=== PATIENT | female | born 1965 ===

== ENCOUNTER 2017-04-18 23:33 | Emergency (ER) | payer MEDICAID ==
[2017-04-18 23:47] VITALS: RESP 16; O2SAT 100; BMI 32.1
[2017-04-19] MEDS ORDERED: Sodium Chloride 0.9% 1,000 ML IV STA (00:15)
[2017-04-19] MEDS ORDERED: Alum-Mag Hydrox-Simethicone Susp (30 mL) PO STA (00:15)
--- NOTE | 2017-04-19 00:26 | ED PDOC ---
Arrival/HPI - General Chief Complaint: GI Problem Time Seen by Provider: 04/18/17 23:47 Historian: Patient - History of Present Illness Narrative History of Present Illness (Text): 04/19/17 00:09 Ju Daniel is a 51 year old female who presents to the emergency department complaining of persistent left sided abdominal pain for about 6 hours. Patient notes that she experiences associated burning sensation, nausea , chills, headache and diarrhea. Patient states that today was the first time she vomited due to her symptoms which continue to persist, prompting patient to come to emergency department. Patient states that these symptoms have been intermittent for one year and possibly occur after eating certain fried foods. Patient saw her channel marketing manager about her symptoms, underwent endoscopy and a colonoscopy, and was subsequently treated for H. pylori. Patient was prescribed Omeprazole and Nexium. Patient denies any other complaint at this time. Time/Duration: 4-6 hours Symptom Onset: Gradual Symptom Course: Unchanged Severity Level: Moderate Activities at Onset: Rest Context: Home Past Medical History - Provider Review Nursing Documentation Reviewed: Yes - Tetanus Immunization Tetanus Immunization: Unknown - Past Medical History Past Medical History: No Previous - Endocrine/Metabolic Hx Systemic Lupus Erythematosus: Yes - Musculoskeletal/Rheumatological Hx Arthritis: Yes (Rheumatoid) - Psychiatric Hx Depression: Yes Hx Emotional Abuse: No Hx Physical Abuse: No Hx Substance Use: No - Surgical History Hx Orthopedic Surgery: Yes (left heel spur) Hx Tubal Ligation: Yes - Anesthesia Hx Anesthesia: Yes Hx Anesthesia Reactions: No Hx Malignant Hyperthermia: No - Suicidal Assessment Feels Threatened In Home Enviroment: No Family/Social History - Physician Review Nursing Documentation Reviewed: Yes Family/Social History: No Known Family HX Smoking Status: Former Smoker Hx Alcohol Use: Yes Hx Substance Use: No Hx Substance Use Treatment: No Allergies/Home Meds Allergies/Adverse Reactions: Allergies morphine Allergy (Verified 03/26/16 14:56) REDNESS Home Medications: Home Meds Medication Instructions Recorded Confirmed Dicyclomine [Dicyclomine HCl] 10 mg PO BID PRN 04/19/17 04/19/17 Gabapentin [Neurontin] 300 mg PO DAILY 04/19/17 04/19/17 Hydroxychloroquine Sulfate 200 mg PO DAILY 04/19/17 04/19/17 Naproxen [Naprosyn] 500 mg PO PRN PRN 04/19/17 04/19/17 Omeprazole 40 mg PO DAILY 04/19/17 04/19/17 Pnv with Ca,No.72/Iron/FA [Preplus 1 each PO DAILY 04/19/17 04/19/17 Ca-Fe 27 mg-FA 1 mg Tb] Polyethylene Glycol 3350 [Miralax] 17 gm PO PRN PRN 04/19/17 04/19/17 Review of Systems - Physician Review All systems were reviewed & negative as marked: Yes - Review of Systems Constitutional: Other (chills). absent: Fevers Eyes: absent: Vision Changes ENT: absent: Hearing Changes Respiratory: absent: SOB, Cough Cardiovascular: absent: Chest Pain Gastrointestinal: Abdominal Pain, Diarrhea, Nausea, Vomiting Genitourinary Female: absent: Dysuria Musculoskeletal: absent: Arthralgias, Back Pain Skin: absent: Rash, Pruritis Neurological: Headache Endocrine: absent: Diaphoresis Hemo/Lymphatic: absent: Adenopathy Psychiatric: absent: Anxiety Physical Exam - Physical Exam Narrative Physical Exam (Text): Constitutional: No acute distress. Head: Normocephalic. Atraumatic. Eyes: PERRL. ENT: Moist mucous membranes. Neck: Supple. Cardiovascular: Regular rate. Chest: No tenderness. Respiratory: Clear to auscultation bilaterally. GI: Epigastric and LUQ tenderness with guarding. No rebound. Back: No CVA tenderness. Musculoskeletal: No tenderness or swelling of extremities. Skin: No rash. Neurologic: Alert, no focal deficit.\ Vital Signs Reviewed: Yes Vital Signs Temp Pulse Resp BP Pulse Ox 04/19/17 02:19 98.7 F 93 H 16 155/77 H 100 04/18/17 23:46 99.5 F 96 H 16 132/75 100 Temperature: Afebrile Blood Pressure: Normal Pulse: Tachycardic Respiratory Rate: Normal Appearance: Positive for: Well-Appearing, Non-Toxic, Comfortable Pain Distress: None Mental Status: Positive for: Alert and Oriented X 3 Medical Decision Making ED Course and Treatment: 04/19/17 00:09 Impression: 51 year female complaining of persistent left sided abdominal pain with associated vomiting, nausea, chills, headache, and diarrhea for 6 hours. Differential Diagnosis included but are not limited to: Gastritis vs. Enteritis vs. Pancreatitis Plan: -- Abdomen and Pelvis CT with contrast -- HCG and Urinalysis -- Labs -- Maalox, Pepcid, Zofran, and IV fluids -- Reassess and disposition Prior Visits: Notes and results from previous visits were reviewed. Patient last seen in the ED on 03/26/16 for right elbow pain for one week. Patient was discharged home. Progress Notes: IMPRESSION: 1. Probable colitis. Consider inflammatory, infectious or ischemic etiologies. 2. Probable fibroid uterus. 3. LEFT ovarian dermoid. 4. Incidental/non-acute findings are described above. Patient in no distress. Labs unremarkable. Discharge home, f/u PMD/GI, return to ER for worsening pain, fever, vomiting, dyspnea, or any other problem. - Lab Interpretations Lab Results: 04/19/17 00:00 04/19/17 00:00 Lab Results 04/19/17 00:00: Sodium 142, Potassium 4.1, Chloride 104, Carbon Dioxide 26, Anion Gap 16, BUN 14, Creatinine 0.6, Est GFR ( Amer) > 60, Est GFR (Non- Af Amer) > 60, Random Glucose 118 H, Calcium 9.5, Total Bilirubin 0.4, AST 30, ALT 31, Alkaline Phosphatase 66, Total Protein 8.2, Albumin 4.4, Globulin 3.7, Albumin/Globulin Ratio 1.2, Lipase 97 04/19/17 00:00: Urine Color Yellow, Urine Appearance Sl cloudy, Urine pH 6.0, Ur Specific Gem >= 1.030, Urine Protein Negative, Urine Glucose (UA) Negative, Urine Ketones Negative, Urine Blood Large H, Urine Nitrate Negative, Urine Bilirubin Negative, Urine Urobilinogen 0.2, Ur Leukocyte Esterase Negative , Urine RBC 25 - 30, Urine WBC 0 - 2, Ur Epithelial Cells 0 - 2, Urine HCG, Qual Negative 04/19/17 00:00: WBC 11.6 H D, RBC 5.02, Hgb 14.0, Hct 41.1, MCV 81.9, MCH 27.9, MCHC 34.1, RDW 14.6 H, Plt Count 274, MPV 11.0, Gran % 89.1 H, Lymph % (Auto) 5.2 L, [place] % (Auto) 4.5, Eos % (Auto) 1.0 L, Baso % (Auto) 0.2, Gran # 10.36 H , Lymph # 0.6 L, [place] # 0.5, Eos # 0.1, Baso # 0.02 I have reviewed the lab results: Yes - RAD Interpretation Radiology Orders: 04/19/17 00:16 ABD & PELVIS IV CONTRAST ONLY [CT] Stat - Medication Orders Current Medication Orders: Discontinued Medications Al Hydrox/Mg Hydrox/Simethicone (Maalox Plus 30 Ml) 30 ml PO STAT STA Stop: 04/19/17 00:16 Last Admin: 04/19/17 00:31 Dose: 30 ml Famotidine (Pepcid) 20 mg IVP STAT STA Stop: 04/19/17 00:16 Last Admin: 04/19/17 00:32 Dose: 20 mg Sodium Chloride (Sodium Chloride 0.9%) 1,000 mls @ 999 mls/hr IV .Q1H1M STA Stop: 04/19/17 01:15 Last Admin: 04/19/17 00:32 Dose: 999 mls/hr Iohexol (Omnipaque 350 100 Ml) Confirm Administered Dose 350 mg .ROUTE .STK-MED ONE Stop: 04/19/17 01:45 Ondansetron HCl (Zofran Inj) 8 mg IVP STAT STA Stop: 04/19/17 00:16 Last Admin: 04/19/17 00:32 Dose: 8 mg - Scribe Statement The provider has reviewed the documentation as recorded by the Bharath Porras Provider Scribe Attestation: All medical record entries made by the Scribe were at my direction and personally dictated by me. I have reviewed the chart and agree that the record accurately reflects my personal performance of the history, physical exam, medical decision making, and the department course for this patient. I have also personally directed, reviewed, and agree with the discharge instructions and disposition. Disposition/Present on Arrival - Present on Arrival Any Indicators Present on Arrival: No History of DVT/PE: No History of Uncontrolled Diabetes: No Urinary Catheter: No History of Decub. Ulcer: No History Surgical Site Infection Following: None - Disposition Have Diagnosis and Disposition been Completed?: Yes Diagnosis: Colitis Disposition: HOME/ ROUTINE Disposition Time: 02:35 Patient Plan: Discharge Condition: STABLE Discharge Instructions (ExitCare): Colitis (ED) Prescriptions: Ciprofloxacin [Cipro] 500 mg PO BID #14 tab Metronidazole [Flagyl] 500 mg PO Q8 #30 tab Ondansetron ODT [Zofran ODT] 4 mg PO Q8 #12 odt Referrals: Anne Cedeno DO [Primary Care Provider] - Follow up with primary
[2017-04-19 01:02] LABS: BASO # 0.02 K/mm3 (0.0-2.0); BASO % 0.2 % (0.0-3.0); EOS # 0.1 (0.0-0.7); GRAN # 10.36 (1.4-6.5); GRAN % 89.1 % (50.0-68.0); LYMPH # 0.6 (1.2-3.4); LYMPH % 5.2 % (22.0-35.0); MEAN CELL VOLUME 81.9 fL (80.0-105.0); MEAN CORPUSCULAR HEMOGLOBIN 27.9 pg (25.0-35.0); MEAN CORPUSCULAR HGB CONC 34.1 g/dl (31.0-37.0); MONO # 0.5 (0.1-0.6); MONO % 4.5 % (1.0-6.0); PLATELET COUNT 274 10^3/uL (120.0-450.0); RBC 5.02 10^6/uL (3.5-6.1); RED CELL DISTRIBUTION WIDTH 14.6 % (11.5-14.5); WHITE BLOOD COUNT 11.6 10^3/ul (4.5-11.0)
[2017-04-19 01:04] LABS: ALB/GLOB RATIO 1.2 (1.1-1.8); ALBUMIN 4.4 g/dL (3.0-4.8); ALT/SGPT 31 U/L (7-56); AST/SGOT 30 U/L (15-39); BLOOD UREA NITROGEN 14 mg/dL (7-21); CALCIUM 9.5 mg/dL (8.4-10.5); GFR AFRICAN-AMERICAN > 60; GFR NON-AFRICAN AMERICAN > 60; LIPASE 97 U/L (23-300)
[2017-04-19 01:06] LABS: URINE BILIRUBIN NEGATIVE (NEGATIVE); URINE BLOOD LARGE (NEGATIVE); URINE GLUCOSE (UA) NEGATIVE (NEGATIVE); URINE LEUKOCYTE ESTERASE NEGATIVE Leu/uL (NEGATIVE); URINE NITRATE NEGATIVE (NEGATIVE); URINE PROTEIN NEGATIVE mg/dL (<30 mg/dL); URINE UROBILINOGEN 0.2 E.U./dL (<1 E.U./dL)
[2017-04-19 01:09] LABS: URINE APPEARANCE SL CLOUDY (CLEAR); URINE COLOR YELLOW (YELLOW)
[2017-04-19 01:10] LABS: HCG,QUALITATIVE URINE NEGATIVE (NEGATIVE)
[2017-04-19 01:18] LABS: URINE EPITHELIAL CELLS 0 - 2 /hpf (0-5); URINE RBC 25 - 30 /hpf (0-2); URINE WBC 0 - 2 /hpf (0-6)
[2017-04-19] MEDS ORDERED: Iohexol 350 MG/100 ML VIAL ONE (01:44)
[2017-04-19 02:20] VITALS: BP 155/77; PULSE 93; TEMP 98.7
--- NOTE | 2017-04-19 02:33 | CT ---
EXAM: CT Abdomen and Pelvis With Intravenous Contrast CLINICAL HISTORY: 51 years old, female; Pain; Abdominal pain; Generalized; Additional info: Abd pain, vomiting TECHNIQUE: Axial computed tomography images of the abdomen and pelvis with intravenous contrast. This CT exam was performed using one or more of the following dose reduction techniques: automated exposure control, adjustment of the mA and/or kV according to patient size, and/or use of iterative reconstruction technique. Coronal and sagittal reformatted images were created and reviewed. CONTRAST: 96 mL of OMNI 350 administered intravenously. COMPARISON: No relevant prior studies available. FINDINGS: Lower thorax: Minimal atelectasis. LEFT lower lobe calcified granuloma. ABDOMEN: Liver: Unremarkable. No mass. Gallbladder and bile ducts: No calcified stones. No ductal dilation. Pancreas: No ductal dilation. No mass. Spleen: No splenomegaly. Adrenals: No mass. Kidneys and ureters: No mass. No hydronephrosis. Stomach and bowel: Few scattered diverticula within colon. No associated inflammatory stranding. Mild to moderate mural thickening of descending, sigmoid colon. No obstruction. Appendix: Normal caliber. No inflammation. PELVIS: Bladder: Unremarkable. Reproductive: Lobulated heterogeneous uterus. 2.9 x 2.6 x 2.7 cm fat containing lesion within LEFT ovary. ABDOMEN and PELVIS: Intraperitoneal space: No significant fluid collection. No free air. Bones/joints: Mild degenerative changes of spine. No acute fracture. Soft tissues: Unremarkable. Vasculature: Minimal atherosclerotic disease. No aneurysm. Lymph nodes: No pathologically enlarged lymph nodes. IMPRESSION: 1. Probable colitis. Consider inflammatory, infectious or ischemic etiologies. 2. Probable fibroid uterus. 3. LEFT ovarian dermoid. 4. Incidental/non-acute findings are described above.
== END 2017-04-19 02:44 | disposition home or self-care (01) ==
LOC: ED 23:33
DX: K52.9 Noninfective gastroenteritis and colitis, unspecified (principal); M32.9 Systemic lupus erythematosus, unspecified; Z87.891 Personal history of nicotine dependence
CPT/HCPCS: 74177; 80053; 81001; 83690; 84703; 85025; 96361; 96374; 96375; 99285; J2405; J7040; Q9967

== ENCOUNTER 2017-04-19 18:19 | Emergency (ER) | payer MEDICAID ==
[2017-04-19 18:19] VITALS: BMI 32.1
[2017-04-19 18:34] VITALS: TEMP 98.5; O2SAT 100
--- NOTE | 2017-04-19 18:54 | ED PDOC ---
Arrival/HPI - General Chief Complaint: GI Problem Time Seen by Provider: 04/19/17 18:51 Historian: Patient - History of Present Illness Narrative History of Present Illness (Text): The patient is a 51yo female, presents to the emergency department for evaluation of bright red blood per rectum since this morning with three episodes. Pt reports her abdominal pain is present but has improved compared to yesterday. She denies any nausea, vomiting and diarrhea. Also denies any chest pain, shortness of breath, dyspnea upon exertion, weakness or lightheadedness. Pt offers no additional medical complaints. Time/Duration: 24 hours Past Medical History - Provider Review Nursing Documentation Reviewed: Yes - Tetanus Immunization Tetanus Immunization: Unknown - Past Medical History Past Medical History: No Previous - Endocrine/Metabolic Hx Systemic Lupus Erythematosus: Yes - Musculoskeletal/Rheumatological Hx Arthritis: Yes (Rheumatoid) - Psychiatric Hx Depression: Yes Hx Emotional Abuse: No Hx Physical Abuse: No Hx Substance Use: No - Surgical History Hx Orthopedic Surgery: Yes (left heel spur) Hx Tubal Ligation: Yes - Anesthesia Hx Anesthesia: Yes Hx Anesthesia Reactions: No Hx Malignant Hyperthermia: No - Suicidal Assessment Feels Threatened In Home Enviroment: No Family/Social History - Physician Review Nursing Documentation Reviewed: Yes Family/Social History: Unknown Family HX Smoking Status: Former Smoker Hx Alcohol Use: Yes Hx Substance Use: No Hx Substance Use Treatment: No Allergies/Home Meds Allergies/Adverse Reactions: Allergies morphine Allergy (Verified 04/19/17 18:30) REDNESS Home Medications: Home Meds Medication Instructions Recorded Confirmed Dicyclomine [Dicyclomine HCl] 10 mg PO BID PRN 04/19/17 04/19/17 Gabapentin [Neurontin] 300 mg PO DAILY 04/19/17 04/19/17 Hydroxychloroquine Sulfate 200 mg PO DAILY 04/19/17 04/19/17 Naproxen [Naprosyn] 500 mg PO PRN PRN 04/19/17 04/19/17 Omeprazole 40 mg PO DAILY 04/19/17 04/19/17 Pnv with Ca,No.72/Iron/FA [Preplus 1 each PO DAILY 04/19/17 04/19/17 Ca-Fe 27 mg-FA 1 mg Tb] Polyethylene Glycol 3350 [Miralax] 17 gm PO PRN PRN 04/19/17 04/19/17 Review of Systems - Physician Review All systems were reviewed & negative as marked: Yes Physical Exam - Physical Exam Narrative Physical Exam (Text): - Review of Systems Constitutional: Normal. absent: Fatigue, Weight Change, Fevers Eyes: Normal ENT: Normal Respiratory: Normal absent: SOB, Cough, Sputum Cardiovascular: Normal absent: Chest pain, Palpitations, Syncope Gastrointestinal: Abdominal pain (improved compared to yesterday), Bright red blood per rectum, Normal absent:Diarrhea, Nausea, Vomiting Genitourinary: Normal. absent: Dysuria, Frequency, Hematuria Musculoskeletal: Normal. absent: Arthralgias, Back Pain, Neck Pain Skin: Normal Neurological: Normal absent: Focal Weakness Endocrine: Normal Hemo/Lymphatic: Normal Psychiatric: Normal - Physical exam Patient appears age appropriate, speaking full sentences without difficulty - Systems Exam Head: Present: Atraumatic, Normocephalic Pupils: Present: PERRL Extraocular Muscles: Present: EOMI Conjunctiva: Present: Normal Mouth: Present: Moist Mucous Membranes Neck: Present: Normal Range of Motion. No: MIDLINE TENDERNESS, Paraspinal Tenderness Respiratory/Chest: Present: Clear to Auscultation, Good Air Exchange. No: Respiratory Distress, Accessory Muscle Use, Tachypnic Cardiovascular: Present: Regular Rate and Rhythm, Normal S1, S2, Peripheral Pulses Present. No: Murmurs Abdomen: Present: Normal Bowel Sounds, Mild tenderness to palpation of left lower quadrant No: , Peritoneal Signs, Rebound, Guarding, Distention Rectal exam: Good rectal tone, external hemorrhoids noted, scant bright red blood noted, guaiac positive Back: Present: Normal Inspection. No: Midline Tenderness, Paraspinal Tenderness Upper Extremity: Present: Normal Inspection. No: Cyanosis, Edema Lower Extremity: Present: Normal Inspection. No: Edema Neurological: Present: GCS=15, Speech Normal, cranial nerves II through XII fully intact with no cerebellar abnormality, neuro-sensory fully intact. No focal neurological deficits. Skin: Present: Warm, Dry, Normal Color. No: Rashes Lymphatic: Present: OX3, NI, NC Psychiatric: Present: Alert, Oriented x 3, Normal Insight, Normal Concentration Reina Vincent (Scribe) present at bedside during rectal exam. Vital Signs Reviewed: Yes Vital Signs Temp Pulse Resp BP Pulse Ox 04/19/17 21:00 82 16 128/80 100 04/19/17 18:33 98.5 F 84 18 125/77 100 Temperature: Afebrile Blood Pressure: Normal Pulse: Regular Respiratory Rate: Normal Appearance: Positive for: Well-Appearing, Non-Toxic, Comfortable Pain Distress: None Mental Status: Positive for: Alert and Oriented X 3 Medical Decision Making ED Course and Treatment: Impression: Rectal bleeding, recent diagnosis of colitis. Scant bright red blood on rectal exam. Pt hemodynamically stable. Differential Diagnosis included but are not limited to: Colitis vs. anemia Plan: -- Call placed to pt's GI Dr. Jakob Martin -- Labs -- Reassess and disposition Prior Visits: Notes and results from previous visits were reviewed. On 04/18/2017 patient was seen in emergency department and evaluated for left sided abdominal pain. CT scan showed probable colitis. Patient was discharged home with prescriptions for Cippro and Flagyl. Progress Notes: 04/19/17 19:40 Case discussed extensively with on-call Dr. Miller in detail. Recommends patient continue the antibiotics and to call office for follow up on Saturday. Advises that patient can be discharged home if vitals are stable and hemoglobin has not significantly dropped. 04/19/17 20:42 Hb stable BUN/Cre ratio normal pt hemodynamically stable in no distress states she feels comfortable being dc'd home with outpatient f/u no active bleeding at this time advised to take abx as prescribed and to f/u this upcoming Saturday On reevaluation, patient reports that she feels much better and would like to be discharged home. Patient's repeat abdominal exam is soft, nontender, non distended with positive bowel sounds in all 4 quadrants and no peritoneal signs. Patient is tolerating PO without any difficulty. Pt states she understands to return to the ER right away for new or worsening symptoms or for inability to f/u with PMD or specialist as instructed. Patient states that she fully agrees with and understands discharge instructions. States that she agrees with the plan and disposition. Verbalized and repeated discharge instructions and plan. I have given the patient opportunity to ask any additional questions. - Lab Interpretations Lab Results: 04/19/17 19:55 04/19/17 19:55 Lab Results 04/19/17 19:55: Sodium 139, Potassium 4.2, Chloride 101, Carbon Dioxide 29, Anion Gap 13, BUN 10, Creatinine 0.5, Est GFR ( Amer) > 60, Est GFR (Non- Af Amer) > 60, Random Glucose 101, Calcium 9.3, Total Bilirubin 0.5, AST 51 H, ALT 61 H, Alkaline Phosphatase 72, Total Protein 7.8, Albumin 4.1, Globulin 3.7 , Albumin/Globulin Ratio 1.1 04/19/17 19:55: WBC 10.0, RBC 4.60, Hgb 12.7, Hct 37.5, MCV 81.5, MCH 27.6, MCHC 33.9, RDW 14.4, Plt Count 258, MPV 9.9, Gran % 72.7 H, Lymph % (Auto) 16.1 L, [place] % (Auto) 8.2 H, Eos % (Auto) 2.8, Baso % (Auto) 0.2, Gran # 7.24 H, Lymph # 1.6, [place] # 0.8 H, Eos # 0.3, Baso # 0.02 - Scribe Statement The provider has reviewed the documentation as recorded by the Bharath Kaur Provider Scribe Attestation: All medical record entries made by the Julianibkaren were at my direction and personally dictated by me. I have reviewed the chart and agree that the record accurately reflects my personal performance of the history, physical exam, medical decision making, and the department course for this patient. I have also personally directed, reviewed, and agree with the discharge instructions and disposition. Disposition/Present on Arrival - Present on Arrival Any Indicators Present on Arrival: No History of DVT/PE: No History of Uncontrolled Diabetes: No Urinary Catheter: No History of Decub. Ulcer: No History Surgical Site Infection Following: None - Disposition Have Diagnosis and Disposition been Completed?: Yes Diagnosis: Colitis Disposition: HOME/ ROUTINE Disposition Time: 20:45 Patient Plan: Discharge Condition: GOOD Discharge Instructions (ExitCare): Rectal Bleeding (ED), Colitis (ED) Additional Instructions: PLEASE RETURN TO THE EMERGENCY DEPARTMENT FOR NEW OR WORSENING SYMPTOMS. PLEASE RETURN TO THE ER FOR RECTAL BLEED, ABDOMINAL PAIN, FEVERS, CHILLS, NAUSEA, OR VOMITING. MAKE AN APPOINTMENT WITH YOUR PRIMARY PHYSICIAN AND GI SPECIALIST FOR THIS UPCOMING SATURDAY. RETURN RIGHT AWAY IF YOU CANNOT FOLLOW UP INSTRUCTED. Referrals: Anne Cedeno DO [Primary Care Provider] - Follow up with primary Jakob Martin MD [Medical Doctor] - Follow up with primary
[2017-04-19 20:02] LABS: BASO # 0.02 K/mm3 (0.0-2.0); BASO % 0.2 % (0.0-3.0); EOS # 0.3 (0.0-0.7); EOS % 2.8 % (1.5-5.0); GRAN # 7.24 (1.4-6.5); GRAN % 72.7 % (50.0-68.0); HEMOGLOBIN 12.7 gm/dL (12.0-16.0); LYMPH # 1.6 (1.2-3.4); LYMPH % 16.1 % (22.0-35.0); MEAN CELL VOLUME 81.5 fL (80.0-105.0); MEAN CORPUSCULAR HEMOGLOBIN 27.6 pg (25.0-35.0); MEAN CORPUSCULAR HGB CONC 33.9 g/dl (31.0-37.0); MEAN PLATELET VOLUME 9.9 fl (7.0-11.0); MONO # 0.8 (0.1-0.6); MONO % 8.2 % (1.0-6.0); PLATELET COUNT 258 10^3/uL (120.0-450.0); RED CELL DISTRIBUTION WIDTH 14.4 % (11.5-14.5)
[2017-04-19 20:14] LABS: ALB/GLOB RATIO 1.1 (1.1-1.8); ALBUMIN 4.1 g/dL (3.0-4.8); ALT/SGPT 61 U/L (7-56); AST/SGOT 51 U/L (15-39); BLOOD UREA NITROGEN 10 mg/dL (7-21); CALCIUM 9.3 mg/dL (8.4-10.5); GFR AFRICAN-AMERICAN > 60; GFR NON-AFRICAN AMERICAN > 60
[2017-04-19 21:36] VITALS: BP 128/80; PULSE 82; RESP 16
== END 2017-04-19 21:00 | disposition home or self-care (01) ==
LOC: ED 18:19
DX: K52.9 Noninfective gastroenteritis and colitis, unspecified (principal); Z87.891 Personal history of nicotine dependence; M32.9 Systemic lupus erythematosus, unspecified

== ENCOUNTER 2017-07-26 16:25 | Observation (INO) | payer MEDICAID ==
[2017-07-26 16:25] VITALS: BMI 32.1
--- NOTE | 2017-07-26 17:57 | ED PDOC ---
Arrival/HPI - General Chief Complaint: Dizziness/Lightheaded Time Seen by Provider: 07/26/17 17:26 Historian: Patient - History of Present Illness Narrative History of Present Illness (Text): 07/26/17 17:35 A 52 year old female, whose past medical history includes Lupus, presents to the emergency department complaining of dizziness, on and off for the past few months, worsening this past week. Patient reports dizziness is worse with movement. Also notes chest discomfort, worse with exertion over the past several months. States that her chest discomfort is noticeable more with exertion over the past week. Reports intermittent generalized headaches, denies fever or trauma. Denies cough or sore throat. Denies palpitations. Denies leg pain or swelling. Denies dark or bloody stools. PMD: Dr. Cedeno Symptom Onset: Sudden Symptom Course: Unchanged Activities at Onset: Rest Context: Home Past Medical History - Provider Review Nursing Documentation Reviewed: Yes - Infectious Disease Hx of Infectious Diseases: None - Tetanus Immunization Tetanus Immunization: Unknown - Reproductive Menopause: No - Past Medical History Past Medical History: No Previous - Endocrine/Metabolic Hx Systemic Lupus Erythematosus: Yes - Musculoskeletal/Rheumatological Hx Arthritis: Yes (Rheumatoid) - Psychiatric Hx Depression: Yes Hx Emotional Abuse: No Hx Physical Abuse: No Hx Substance Use: No - Surgical History Hx Orthopedic Surgery: Yes (left heel spur) Hx Tubal Ligation: Yes - Anesthesia Hx Anesthesia: Yes Hx Anesthesia Reactions: No Hx Malignant Hyperthermia: No - Suicidal Assessment Feels Threatened In Home Enviroment: No Family/Social History - Physician Review Nursing Documentation Reviewed: Yes Family/Social History: No Known Family HX Smoking Status: Former Smoker Hx Alcohol Use: Yes Hx Substance Use: No Hx Substance Use Treatment: No Allergies/Home Meds Allergies/Adverse Reactions: Allergies morphine Allergy (Verified 07/26/17 16:50) REDNESS Home Medications: Home Meds Medication Instructions Recorded Confirmed Gabapentin [Neurontin] 300 mg PO DAILY 04/19/17 07/26/17 Naproxen [Naprosyn] 500 mg PO PRN PRN 04/19/17 07/26/17 Omeprazole 40 mg PO DAILY 04/19/17 07/26/17 Review of Systems - Review of Systems Constitutional: Fatigue. absent: Fevers Eyes: absent: Vision Changes, Eye Pain ENT: absent: Hearing Changes Respiratory: SOB. absent: Cough Cardiovascular: Chest Pain (discomfort), HOSKINS. absent: Edema, Calf Pain Gastrointestinal: Nausea. absent: Vomiting Musculoskeletal: Arthralgias, Myalgias. absent: Joint Swelling Skin: absent: Pruritis Neurological: Headache, Dizziness Endocrine: absent: Polyuria Hemo/Lymphatic: absent: Easy Bleeding Physical Exam - Physical Exam Narrative Physical Exam (Text): 07/26/17 17:35 Head: Atraumatic. Normocephalic. Nontender. No soft tissue swelling Eyes: PERRL. EOMI. Conjunctivae are not pale. ENT: Mucous membranes are moist and intact. Oropharynx is clear and symmetric. Neck: Supple. Full ROM. No JVD. No lymphadenopathy. Cardiovascular: Regular rate. Regular rhythm. No murmurs, rubs, or gallops. Distal pulses are 2+ and symmetric. Pulmonary/Chest: No evidence of respiratory distress. Clear to auscultation bilaterally. No wheezing, rales or rhonchi. Abdominal: Soft and non-distended. There is no tenderness. No rebound, guarding, or rigidity. No organomegaly. Good bowel sounds. Back: No CVA tenderness. Extremities: No edema. No cyanosis. No clubbing. Full range of motion in all extremities. No calf tenderness. Skin: Skin is warm and dry. No petechiae. No purpura. Neurological: Alert, awake, and oriented. No facial droop. No slurred speech. No focal weakness to arms or legs. Normal rapid alternating movements. Will have mild spinning sensation when turning her head which fatigues. Neck is supple with no meningeal signs. Ambulatory. Psychiatric: Good eye contact. Normal interaction, affect, and behavior. 07/26/17 20:19 Vital Signs Reviewed: Yes Vital Signs Temp Pulse Resp BP Pulse Ox 07/26/17 16:46 98.3 F 84 16 116/76 96 Temperature: Afebrile Blood Pressure: Normal Pulse: Regular Respiratory Rate: Normal Appearance: Positive for: Well-Appearing, Non-Toxic, Comfortable Pain Distress: None Mental Status: Positive for: Alert and Oriented X 3 Medical Decision Making ED Course and Treatment: 07/26/17 17:35 Impression: A 52 year old female with dizziness, chest discomfort and headache. Differential Diagnosis included but are not limited to: vertigo vs. CAD vs. Rheumatologic disorder Plan: -- EKG -- chest xray -- CT head -- labs -- Urinalysis -- Antivert -- Reassess and disposition Prior Visits: Notes and results from previous visits were reviewed. Patient was last seen in the emergency department on 04/19/17 for evaluation of rectal bleeding and abdominal pain. Progress Notes: Patient's history supplemented by her daughter who is nurse at [facility]. Initial EKG unremarkable. Patient with some improvement of dizziness after meclizine. She is not orthostatic. 07/26/17 18:07 CT HEAD WITHOUT CONTRAST Creator : Wilton Mireles FINDINGS: HEMORRHAGE: No acute parenchymal, subarachnoid or extra-axial hemorrhage. BRAIN: No evidence of large acute infarct. Questionable minimal chronic periventricular white matter ischemic changes. . Ventricular and sulcal size are within range of normal for this patient's stated age. VENTRICLES: No obstructive hydrocephalus. CALVARIUM: Calvarium is intact. PARANASAL SINUSES: Visualized paranasal sinuses are well-developed and currently well-aerated. The the the the ammy no GI all MASTOID AIR CELLS: Unremarkable as visualized. No inflammatory changes. IMPRESSION: No evidence of acute intracranial hemorrhage. Suspect minimal chronic periventricular white matter ischemic changes. Patient with family history of cad, mother/brother. Given history of lupus I feel she has increased risk for underlying pulmonary or cardiac process, will admit to telemetry observation with cardiology consultation. Currently no chest pain, no pulse deficits. No hypoxia. Reviewed treatment plan with daughter and patient, will admit to hospitalist service. 07/26/17 20:24 - Lab Interpretations Lab Results: 07/26/17 18:40 07/26/17 18:40 Lab Results 07/26/17 19:00: PT 11.7, INR 1.07, APTT 28.5 07/26/17 18:40: Sodium 140, Potassium 4.1, Chloride 102, Carbon Dioxide 29, Anion Gap 13, BUN 12, Creatinine 0.5 L, Est GFR ( Amer) > 60, Est GFR ( Non-Af Amer) > 60, Random Glucose 113 H, Calcium 9.4, Total Bilirubin 0.5, AST 31, ALT 39, Alkaline Phosphatase 75, Lactate Dehydrogenase 592, Total Creatine Kinase 76, Troponin I < 0.01, Total Protein 7.7, Albumin 4.3, Globulin 3.4, Albumin/Globulin Ratio 1.3 07/26/17 18:40: WBC 7.5 D, RBC 4.69, Hgb 12.9, Hct 38.3, MCV 81.7, MCH 27.5, MCHC 33.7, RDW 14.1, Plt Count 261, MPV 9.9, Gran % 69.0 H, Lymph % (Auto) 19.8 L, Morrow % (Auto) 7.3 H, Eos % (Auto) 3.6, Baso % (Auto) 0.3, Gran # 5.18, Lymph # 1.5, Morrow # 0.6, Eos # 0.3, Baso # 0.02 - RAD Interpretation Radiology Orders: 07/26/17 17:51 HEAD W/O CONTRAST [CT] Stat 07/26/17 17:52 CHEST PORTABLE [RAD] Stat - EKG Interpretation Interpreted by ED Physician: Yes Type: 12 lead EKG - Medication Orders Current Medication Orders: Discontinued Medications Meclizine HCl (Antivert) 25 mg PO STAT STA Stop: 07/26/17 17:54 Last Admin: 07/26/17 18:40 Dose: 25 mg - Scribe Statement The provider has reviewed the documentation as recorded by the Bharath Everett Provider Scribe Attestation: All medical record entries made by the Bharath were at my direction and personally dictated by me. I have reviewed the chart and agree that the record accurately reflects my personal performance of the history, physical exam, medical decision making, and the department course for this patient. I have also personally directed, reviewed, and agree with the discharge instructions and disposition. Disposition/Present on Arrival - Present on Arrival Any Indicators Present on Arrival: No History of DVT/PE: No History of Uncontrolled Diabetes: No Urinary Catheter: No History of Decub. Ulcer: No History Surgical Site Infection Following: None - Disposition Have Diagnosis and Disposition been Completed?: Yes Diagnosis: Chest pain, Dizziness Disposition: HOSPITALIZED Disposition Time: 20:26 Patient Plan: Admission, Telemetry Condition: FAIR Discharge Instructions (ExitCare): Chest Pain (ED) Referrals: Anne Cedeno DO [Primary Care Provider] - Follow up with primary Forms: [employer] (Ukrainian)
--- NOTE | 2017-07-26 18:34 | CT ---
PROCEDURE: CT HEAD WITHOUT CONTRAST. HISTORY: headache, dizzy COMPARISON: None available. TECHNIQUE: Axial computed tomography images were obtained through the head/brain without intravenous contrast. Radiation dose: Total exam DLP = 843.77 mGy-cm. This CT exam was performed using one or more of the following dose reduction techniques: Automated exposure control, adjustment of the mA and/or kV according to patient size, and/or use of iterative reconstruction technique. FINDINGS: HEMORRHAGE: No acute parenchymal, subarachnoid or extra-axial hemorrhage. BRAIN: No evidence of large acute infarct. Questionable minimal chronic periventricular white matter ischemic changes. . Ventricular and sulcal size are within range of normal for this patient's stated age. VENTRICLES: No obstructive hydrocephalus. CALVARIUM: Calvarium is intact. PARANASAL SINUSES: Visualized paranasal sinuses are well-developed and currently well-aerated. The the the the ammy no GI all MASTOID AIR CELLS: Unremarkable as visualized. No inflammatory changes. OTHER FINDINGS: None. IMPRESSION: No evidence of acute intracranial hemorrhage. Suspect minimal chronic periventricular white matter ischemic changes.
[2017-07-26 18:50] LABS: BASO # 0.02 K/mm3 (0.0-2.0); BASO % 0.3 % (0.0-3.0); EOS # 0.3 (0.0-0.7); EOS % 3.6 % (1.5-5.0); GRAN # 5.18 (1.4-6.5); HEMATOCRIT 38.3 % (36.0-48.0); LYMPH # 1.5 (1.2-3.4); LYMPH % 19.8 % (22.0-35.0); MEAN CELL VOLUME 81.7 fl (80.0-105.0); MEAN CORPUSCULAR HEMOGLOBIN 27.5 pg (25.0-35.0); MEAN CORPUSCULAR HGB CONC 33.7 g/dl (31.0-37.0); MEAN PLATELET VOLUME 9.9 fl (7.0-11.0); MONO # 0.6 (0.1-0.6); MONO % 7.3 % (1.0-6.0); RED CELL DISTRIBUTION WIDTH 14.1 % (11.5-14.5); WHITE BLOOD COUNT 7.5 10^3/ul (4.5-11.0)
[2017-07-26 18:54] LABS: ALB/GLOB RATIO 1.3 (1.1-1.8); ALKALINE PHOSPHATASE 75 U/L (38-126); ALT/SGPT 39 U/L (7-56); AST/SGOT 31 U/L (14-36); BILIRUBIN,TOTAL 0.5 mg/dL (0.2-1.3); BLOOD UREA NITROGEN 12 mg/dL (7-21); CALCIUM 9.4 mg/dL (8.4-10.5); CARBON DIOXIDE 29 mmol/L (21-33); CHLORIDE 102 mmol/L (98-107); GFR AFRICAN-AMERICAN > 60; GLUCOSE,RANDOM 113 mg/dL (70-110); POTASSIUM 4.1 mmol/L (3.6-5.0); SODIUM 140 mmol/L (132-148); TOTAL PROTEIN 7.7 g/dL (5.8-8.3)
[2017-07-26 19:08] LABS: TROPONIN I < 0.01 ng/mL
[2017-07-26 19:12] LABS: INR 1.07 (0.93-1.08); PARTIAL THROMBOPLASTIN TIME 28.5 Seconds (25.1-36.5)
--- NOTE | 2017-07-27 03:20 | CP.PCM.HP ---
<Atul Templeton - Last Filed: 07/27/17 03:46> History of Present Illness - History of Present Illness History of Present Illness: This is a 52 year female with a past medical history of Lupus who comes in complaining of dizziness for the past week. The patient states that she's had this in the past however the last two attacks today were much more severe and that prompted her to come in. The patient also reports headache and right hear pressure and chest pain in conjunction with the symptoms. The patient denies any trauma, fever, chills, leg pain, swelling, dark or bloody stools, syncopal episodes, changes in vision, sicks contacts, or any other complaints. PMD: Dr. Cedeno Assistant Vice President: Dr. Aldana Past medical history: See hpi Medications: Omeprazole, Gabapentin Allergies: Morphine Surgical history: Tubal ligation, Left foot spur repair Family history: Dad(htn), Mom(HLD, Thyroid disease) Present on Admission - Present on Admission Any Indicators Present on Admission: No Review of Systems - Constitutional Constitutional: absent: Chills, Night Sweats, Snoring, Weakness - EENT Eyes: absent: Blurred Vision, Diplopia, Discharge, Dry Eye, Itchy Eyes, Loss of Peripheral Vision Nose/Mouth/Throat: absent: Nasal Congestion, Nasal Trauma, Nose Pain, Dry Mouth , Dysphagia - Cardiovascular Cardiovascular: absent: Chest Pain with Activity, Edema, Irregular Heart Rhythm , Leg Edema, Orthopnea, Palpitations - Respiratory Respiratory: absent: Cough, Dyspnea, Hemoptysis, Wheezing, Pain on Inspiration, Excessive Mucous Production - Gastrointestinal Gastrointestinal: absent: Abdominal Pain, Belching, Bloating, Cramping, Diarrhea , Dyspepsia, Hematochezia, Nausea, Vomiting - Musculoskeletal Musculoskeletal: absent: Back Pain, Neck Pain, Numbness, Stiffness, Tingling - Integumentary Integumentary: absent: Acne, Changing Lesions, Hirsutism, Swelling - Neurological Neurological: Disequilibrium, Dizziness. absent: Tingling, Tremor, Vertigo, Weakness - Psychiatric Psychiatric: absent: Anhedonia, Anxiety, Confusion, Panic Attacks - Endocrine Endocrine: absent: Polydipsia, Polyphagia, Polyuria - Hematologic/Lymphatic Hematologic: absent: Easy Bleeding, Easy Bruising Past Patient History - Infectious Disease Hx of Infectious Diseases: None - Tetanus Immunizations Tetanus Immunization: Unknown - Past Social History Smoking Status: Former Smoker - CARDIAC Hx Cardiac Disorders: No - PULMONARY Hx Respiratory Disorders: No - NEUROLOGICAL Hx Neurological Disorder: Yes Hx Dizziness: Yes - HEENT Hx HEENT Problems: No - RENAL Hx Chronic Kidney Disease: No - ENDOCRINE/METABOLIC Hx Endocrine Disorders: No Hx Systemic Lupus Erythematosus: Yes - HEMATOLOGICAL/ONCOLOGICAL Hx Blood Disorders: No - INTEGUMENTARY Hx Dermatological Problems: No - MUSCULOSKELETAL/RHEUMATOLOGICAL Hx Musculoskeletal Disorders: Yes Hx Arthritis: Yes Hx Falls: No - GASTROINTESTINAL Hx Gastrointestinal Disorders: No - GENITOURINARY/GYNECOLOGICAL Hx Genitourinary Disorders: No - PSYCHIATRIC Hx Psychophysiologic Disorder: Yes Hx Depression: Yes Hx Substance Use: No - SURGICAL HISTORY Hx Orthopedic Surgery: Yes (left heel spur) Hx Tubal Ligation: Yes - ANESTHESIA Hx Anesthesia: Yes Hx Anesthesia Reactions: No Hx Malignant Hyperthermia: No Meds Allergies/Adverse Reactions: Allergies Allergy/AdvReac Type Severity Reaction Status Date / Time morphine Allergy REDNESS Verified 07/26/17 16:50 Physical Exam - Head Exam Head Exam: ATRAUMATIC, NORMAL INSPECTION, NORMOCEPHALIC - Eye Exam Eye Exam: EOMI, Normal appearance, PERRL. absent: Periorbital tenderness Pupil Exam: NORMAL ACCOMODATION, PERRL. absent: Irregular, Mydriatic - ENT Exam ENT Exam: Mucous Membranes Moist, Normal Exam, Normal Oropharynx. absent: TM's Normal Bilaterally - Neck Exam Neck exam: Positive for: Normal Inspection. Negative for: Lymphadenopathy, Thyromegaly - Respiratory Exam Respiratory Exam: Clear to Auscultation Bilateral, NORMAL BREATHING PATTERN. absent: Chest Wall Tenderness, Prolonged Expiratory Phase, Respiratory Distress - Cardiovascular Exam Cardiovascular Exam: REGULAR RHYTHM, RRR, +S1, +S2. absent: Gallop, Rubs - GI/Abdominal Exam GI & Abdominal Exam: Normal Bowel Sounds, Soft. absent: Diminished Bowel Sounds , Hypoactive Bowel Sounds, Organomegaly, Tenderness - Extremities Exam Extremities exam: Positive for: normal inspection. Negative for: joint swelling , pedal edema, tenderness - Back Exam Back exam: NORMAL INSPECTION. absent: CVA tenderness (L), CVA tenderness (R), paraspinal tenderness - Neurological Exam Neurological exam: Alert, CN II-XII Intact, Oriented x3 - Psychiatric Exam Psychiatric exam: Normal Affect, Normal Mood - Skin Skin Exam: Dry, Intact Results - Vital Signs Recent Vital Signs: Last Vital Signs Temp 98.4 F 10/28/17 00:30 Pulse 79 07/27/17 02:00 Resp 20 07/27/17 00:30 BP 130/71 07/27/17 00:30 Pulse Ox 96 07/26/17 16:46 - Labs Result Diagrams: 07/26/17 18:40 07/26/17 18:40 Assessment & Plan - Assessment and Plan (Free Text) Assessment: This is a 52 year old female with a past medical history of lupus who is being admitted for recurrent dizziness. Plan: 1.Recurrent dizziness (bppv vs. labrynthitis) -Upon physical exam dizziness not associated with position or arising from laying down. -Orthotstatics negative. -Neuro consulted. Will f/u with rec's. 2. Chest pain -Repeat EKG in the A.M. Initial EKG in the e.d. negative for acute findings. -Cardiology Consulted. Will f/u with rec's. -Trend Troponins. 3. S.L.E. -No acute management indicated at this time. Will continue to monitor GI ppx -Protonix DVT ppx -SCD's <Yahir Reina - Last Filed: 07/29/17 20:44> Results - Vital Signs Recent Vital Signs: Last Vital Signs Temp 99.2 F 07/28/17 17:16 Pulse 80 07/28/17 17:16 Resp 16 07/28/17 17:16 BP 106/67 07/28/17 17:16 Pulse Ox 100 07/28/17 06:00 - Labs Result Diagrams: 07/28/17 06:00 07/28/17 06:00 Attending/Attestation - Attestation I have personally seen and examined this patient.: Yes I have fully participated in the care of the patient.: Yes I have reviewed all pertinent clinical information: Yes
[2017-07-27 04:58] LABS: BASO # 0.02 K/mm3 (0.0-2.0); BASO % 0.3 % (0.0-3.0); EOS # 0.3 (0.0-0.7); GRAN # 4.45 (1.4-6.5); GRAN % 61.8 % (50.0-68.0); LYMPH # 1.9 (1.2-3.4); LYMPH % 25.8 % (22.0-35.0); MEAN CELL VOLUME 82.2 fl (80.0-105.0); MEAN CORPUSCULAR HEMOGLOBIN 27.1 pg (25.0-35.0); MEAN PLATELET VOLUME 10.2 fl (7.0-11.0); MONO # 0.6 (0.1-0.6); MONO % 8.1 % (1.0-6.0); RED CELL DISTRIBUTION WIDTH 14.6 % (11.5-14.5); WHITE BLOOD COUNT 7.2 10^3/ul (4.5-11.0)
[2017-07-27 05:04] LABS: ALB/GLOB RATIO 1.2 (1.1-1.8); ALKALINE PHOSPHATASE 63 U/L (38-126); ALT/SGPT 38 U/L (7-56); AST/SGOT 25 U/L (14-36); BILIRUBIN,TOTAL 0.4 mg/dL (0.2-1.3); BLOOD UREA NITROGEN 17 mg/dL (7-21); CALCIUM 9.5 mg/dL (8.4-10.5); CARBON DIOXIDE 27 mmol/L (21-33); CHLORIDE 106 mmol/L (98-107); GFR AFRICAN-AMERICAN > 60; GLUCOSE,RANDOM 122 mg/dL (70-110); PHOSPHOROUS 4.3 mg/dL (2.5-4.5); POTASSIUM 4.1 mmol/L (3.6-5.0); SODIUM 142 mmol/L (132-148); TOTAL PROTEIN 7.1 g/dL (5.8-8.3)
[2017-07-27 05:17] LABS: TROPONIN I < 0.01 ng/mL
[2017-07-27] MEDS: Pantoprazole 40 mg EC Tab PO SCH (05:43)
[2017-07-27 08:00] LABS: URINE BILIRUBIN NEGATIVE (NEGATIVE); URINE BLOOD NEGATIVE (NEGATIVE); URINE GLUCOSE (UA) NEGATIVE (NEGATIVE); URINE KETONE NEGATIVE (NEGATIVE); URINE LEUKOCYTE ESTERASE NEGATIVE Leu/uL (NEGATIVE); URINE PROTEIN NEGATIVE mg/dL (<30 mg/dL); URINE UROBILINOGEN 0.2 E.U./dL (<1 E.U./dL)
[2017-07-27 08:08] LABS: URINE APPEARANCE CLEAR (CLEAR); URINE COLOR YELLOW (YELLOW)
--- NOTE | 2017-07-27 09:18 | CARD ---
APPROVED REPORT EKG Measurement Heart [id number] [id number] <Conclusion> Normal sinus rhythm Normal ECG
--- NOTE | 2017-07-27 09:40 | CARD ---
APPROVED REPORT EKG Measurement Heart [id number] [place] 138P60 [id number] <Conclusion> Normal sinus rhythm Normal ECG No change
--- NOTE | 2017-07-27 09:54 | RAD ---
HISTORY: chest pain COMPARISON: No prior. FINDINGS: LUNGS: No active pulmonary disease. PLEURA: No significant pleural effusion identified, no pneumothorax apparent. CARDIOVASCULAR: Normal. OSSEOUS STRUCTURES: No significant abnormalities. VISUALIZED UPPER ABDOMEN: Normal. OTHER FINDINGS: None. IMPRESSION: No acute cardiopulmonary disease appreciated.
[2017-07-27] MEDS: Enoxaparin 40 mg Syringe SC SCH (14:37)
--- NOTE | 2017-07-27 17:25 | CARD ---
APPROVED REPORT EXAM: Two-dimensional and M-mode echocardiogram with Doppler and color Doppler. INDICATION 2D DIMENSIONS IVSd1.2 (0.7-1.1cm)LVDd4.0 (3.9-5.9cm) PWd1.2 (0.7-1.1cm)LVDs2.8 (2.5-4.0cm) FS (%) 28.7 %LVEF (%)56.0 (>50%) M-Mode DIMENSIONS Left Atrium (MM)3.20 (2.5-4.0cm)Aortic Root3.20 (2.2-3.7cm) Aortic Cusp Exc.1.90 (1.5-2.0cm) Aortic Valve AoV Peak Jjenitav376.0cm/Anaya Peak GR.8mmHg Mitral Valve MV E Lxgdusqv63.3cm/sMV A Ohsxxhbk07.8cm/sE/A ratio1.7 TDI Lateral E' Peak V12.80cm/sMedial E' Peak V8.97cm/sE/Lateral E'7.5 E/Medial E'10.7 Tricuspid Valve TR Peak Wdxuxscy860ja/sRAP [id number] Peak Gr.23mmHg [id number] LEFT VENTRICLE The left ventricle is normal size. There is normal left ventricular wall thickness. The left ventricular function is normal. The left ventricular ejection fraction is within the normal range. There is normal LV segmental wall motion. The left ventricular diastolic function is normal. RIGHT VENTRICLE The right ventricle is normal size. There is normal right ventricular wall thickness. The right ventricular systolic function is normal. ATRIA The left atrium size is normal. The right atrium size is normal. AORTIC VALVE The aortic valve is not well visualized. No aortic regurgitation is present. MITRAL VALVE The mitral valve is not well visualized. There is no mitral valve regurgitation noted. GREAT VESSELS The aortic root is normal in size. PERICARDIAL EFFUSION There is no pericardial effusion. <Conclusion> The left ventricle is normal size. There is normal left ventricular wall thickness. The left ventricular function is normal. The left ventricular ejection fraction is within the normal range. There is normal LV segmental wall motion. The left ventricular diastolic function is normal.
--- NOTE | 2017-07-28 02:08 | CON ---
CARDIOLOGY CONSULTATION DATE: REASON FOR CONSULTATION: Dizziness and chest pain. HISTORY OF PRESENT ILLNESS: The patient is a 52-year-old female who has a history of lupus, who presented because of dizziness for the past week. The patient also reported chest discomfort that is worsening with exertion and tightness in nature. The patient denies any associated diaphoresis or shortness of breath. SOCIAL HISTORY: The patient is occasional smoker. MEDICATIONS: Gabapentin 300 mg once a day, Protonix 40 mg p.o. once a day. REVIEW OF SYSTEMS: No nausea or vomiting, no fever or chills. PHYSICAL EXAMINATION GENERAL: The patient is a middle-aged female who does not appear to be in acute distress. VITAL SIGNS: Blood pressure 116/67, heart rate 76, temperature 99.1, respirations 18. HEENT: Normocephalic. NECK: No JVD. CHEST: Clear. HEART: S1 and S2 regular. ABDOMEN: Soft. EXTREMITIES: No edema. LABORATORY DATA: SMA-7 is within normal limits except for glucose of 122, creatinine 0.6. Three sets of troponins are negative. Hemoglobin, hematocrit, white count and platelet count are within normal limits. PT, PTT, and INR are within normal limits. EKG revealed normal sinus rhythm. Urine leukocyte esterase is negative. ASSESSMENT: 1. History of lupus erythematosus. 2. Dizziness. 3. Chest pain. 4. Myocardial infarctions ruled out. RECOMMENDATIONS: Continue current Neurontin and Protonix. Obtain serum D-dimer and schedule the patient for an echocardiogram, start Lovenox 20 mg subcutaneously daily. Vimal Olmstead MD
[2017-07-28] MEDS: Pantoprazole 40 mg EC Tab PO SCH (06:14)
[2017-07-28 06:28] LABS: BASO # 0.02 K/mm3 (0.0-2.0); BASO % 0.3 % (0.0-3.0); EOS # 0.3 (0.0-0.7); EOS % 4.3 % (1.5-5.0); GRAN # 4.91 (1.4-6.5); GRAN % 64.7 % (50.0-68.0); HEMATOCRIT 37.6 % (36.0-48.0); LYMPH # 1.7 (1.2-3.4); LYMPH % 22.1 % (22.0-35.0); MEAN CELL VOLUME 81.6 fl (80.0-105.0); MEAN CORPUSCULAR HEMOGLOBIN 26.9 pg (25.0-35.0); MEAN PLATELET VOLUME 10.2 fl (7.0-11.0); MONO # 0.7 (0.1-0.6); MONO % 8.6 % (1.0-6.0); RED CELL DISTRIBUTION WIDTH 14.4 % (11.5-14.5); WHITE BLOOD COUNT 7.6 10^3/ul (4.5-11.0)
[2017-07-28 06:37] LABS: ALB/GLOB RATIO 1.1 (1.1-1.8); ALKALINE PHOSPHATASE 66 U/L (38-126); ALT/SGPT 37 U/L (7-56); AST/SGOT 40 U/L (14-36); BILIRUBIN,TOTAL 0.5 mg/dL (0.2-1.3); BLOOD UREA NITROGEN 21 mg/dL (7-21); CALCIUM 9.3 mg/dL (8.4-10.5); CARBON DIOXIDE 24 mmol/L (21-33); CHLORIDE 106 mmol/L (98-107); GFR AFRICAN-AMERICAN > 60; GLUCOSE,RANDOM 97 mg/dL (70-110); POTASSIUM 4.2 mmol/L (3.6-5.0); SODIUM 140 mmol/L (132-148); TOTAL PROTEIN 7.3 g/dL (5.8-8.3)
[2017-07-28 06:53] VITALS: RESP 16; O2SAT 100
--- NOTE | 2017-07-28 10:24 | CP.PCM.PN ---
<Jaylen Ndiaye - Last Filed: 07/29/17 06:43> Subjective - Date & Time of Evaluation Date of Evaluation: 07/28/17 Time of Evaluation: 10:19 - Subjective Subjective: patient was seen and examined at bedside. denies any current dizziness, headaches, changes in vision, chest pain or shortness of breath. she states that Dr. Aldana took her off Plaquenil a week ago and now she's only on Naprosyn and Neurontin. Objective - Vital Signs/Intake and Output Vital Signs (last 24 hours): Temp Pulse Resp BP Pulse Ox 98.6 F 78 16 103/69 100 07/28/17 06:00 07/28/17 06:00 07/28/17 06:00 07/28/17 06:00 07/28/17 06:00 Intake and Output: 07/28/17 07/28/17 06:59 18:59 Intake Total 1920 Output Total 350 Balance 1570 - Medications Medications: Current Medications Enoxaparin Sodium (Lovenox) 40 mg SC DAILY [facility] PRN Reason: Protocol Last Admin: 07/27/17 14:37 Dose: 40 mg Gabapentin (Neurontin) 300 mg PO DAILY [facility] PRN Reason: Protocol Last Admin: 07/27/17 09:09 Dose: 300 mg Meclizine HCl (Antivert) 12.5 mg PO Q12 PRN PRN Reason: Dizziness Pantoprazole Sodium (Protonix Ec Tab) 40 mg PO 0600 [facility] Last Admin: 07/28/17 06:14 Dose: 40 mg - Labs Labs: 07/28/17 06:00 07/28/17 06:00 PT 11.7 SECONDS (9.4-12.5) 07/26/17 19:00 INR 1.07 (0.93-1.08) 07/26/17 19:00 APTT 28.5 Seconds (25.1-36.5) 07/26/17 19:00 - Constitutional Appears: Well, Non-toxic, No Acute Distress - Head Exam Head Exam: ATRAUMATIC, NORMAL INSPECTION, NORMOCEPHALIC - Eye Exam Eye Exam: EOMI, Normal appearance, PERRL Pupil Exam: NORMAL ACCOMODATION - ENT Exam ENT Exam: Mucous Membranes Moist, Normal Exam - Neck Exam Neck Exam: Full ROM, Normal Inspection - Respiratory Exam Respiratory Exam: Clear to Ausculation Bilateral, NORMAL BREATHING PATTERN. absent: Decreased Breath Sounds, Rales, Rhonchi, Wheezes - Cardiovascular Exam Cardiovascular Exam: RRR, +S1, +S2. absent: Gallop, Rubs, Murmur - GI/Abdominal Exam GI & Abdominal Exam: Soft, Normal Bowel Sounds. absent: Distended, Tenderness - Extremities Exam Extremities Exam: Full ROM, Normal Inspection. absent: Calf Tenderness, Pedal Edema, Tenderness - Back Exam Back Exam: Full ROM, NORMAL INSPECTION. absent: CVA tenderness (L), CVA tenderness (R), tenderness - Neurological Exam Neurological Exam: Alert, Awake, Oriented x3 Neuro motor strength exam: Left Upper Extremity: 5, Right Upper Extremity: 5, Left Lower Extremity: 5, Right Lower Extremity: 5 - Psychiatric Exam Psychiatric exam: Normal Affect, Normal Mood - Skin Skin Exam: Normal Color, Warm Assessment and Plan - Assessment and Plan (Free Text) Assessment: 52yo F PMH SLE and recurrent dizziness presents with a severe episode of dizziness and R viry-auricular pain x7days. CT Head showed no evidence of acute intracranial hemorrhage. CXR was unremarkable. EKG is NSR and unremarkable, Troponin I negative x3. Labs have all been normal. Dizziness likely 2/2 BPPV vs labyrinthitis. Plan: 1. recurrent dizziness w/ chest discomfort - likely 2/2 BPPV vs labyrinthitis; unlikely ACS - MRI showed early chronic microangiopathy the bilateral central and semiovale regions. No abnormal intracranial enhancement - Carotid U/S shows b/l 40-59% proximal ICA stenosis - neuro consulted, recs appreciated - cardio consulted, started lovenox - orthostatic vital signs were normal in ED showing no orthostatic hypotension - d-dimer was negative - ECHO (07/27/17) showed 56% EF and normal LV function - Meclizine PRN as pt stated it helped her in ED 2. SLE - currently asymptomatic - continue neurontin PTX/ Lovenox HHD Patient was seen, examined and discussed with attending, Dr. Nabila Ndiaye PGY1 <Keiko Dahl - Last Filed: 07/29/17 15:48> Objective - Vital Signs/Intake and Output Vital Signs (last 24 hours): Temp Pulse Resp BP Pulse Ox 99.2 F 80 16 106/67 100 07/28/17 17:16 07/28/17 17:16 07/28/17 17:16 07/28/17 17:16 07/28/17 06:00 - Labs Labs: 07/28/17 06:00 07/28/17 06:00 PT 11.7 SECONDS (9.4-12.5) 07/26/17 19:00 INR 1.07 (0.93-1.08) 07/26/17 19:00 APTT 28.5 Seconds (25.1-36.5) 07/26/17 19:00 Attending/Attestation - Attestation I have personally seen and examined this patient.: Yes I have fully participated in the care of the patient.: Yes I have reviewed all pertinent clinical information, including history, physical exam and plan: Yes Notes (Text): 07/29/17 15:46 attending note; Patient seen and examined with resident. Patient is a 52-year-old female admitted with dizziness. No orthostatic changes. Ambulating fine. CT head is negative. MRI showed chronic microvascular disease. No acute infarct. Carotid Doppler showed moderate stenosis. Started on aspirin. cardiology evaluation appreciated. cardiac enzymes negative. Echo normal. Patient will be discharged home. Follow-up with PMD Dr. Cedeno. Follow-up with neurology Dr. Menchaca. diagnosis; Dizziness Lupus
[2017-07-28] MEDS: Enoxaparin 40 mg Syringe SC SCH ×2 (11:14→11:20)
[2017-07-28] MEDS ORDERED: Gadodiamide 287 MG/ML VIAL (15ML) IV ONE (12:23)
--- NOTE | 2017-07-28 13:34 | US ---
PROCEDURE: Bilateral carotid artery duplex ultrasound HISTORY: Carotid stenosis PHYSICIAN(S): Sulaiman Alva MD. TECHNIQUE: Duplex sonography and color-flow Doppler were used to evaluate the carotid bifurcations and limited segments of the vertebral arteries bilaterally. FINDINGS: There is mild smooth heterogeneous plaque noted at the carotid bifurcations bilaterally. The peak systolic velocity in the proximal right internal carotid artery is 136 cm/sec. This corresponds to a 40-59 percent proximal right ICA stenosis. Normal systolic velocities are noted in the proximal right external carotid artery. There is antegrade flow in the right vertebral artery. The peak systolic velocity in the proximal left internal carotid artery is 117 cm/sec. This corresponds to a 40-59 percent proximal left ICA stenosis. Normal systolic velocities are noted in the proximal left external carotid artery. There is antegrade flow in the left vertebral artery. IMPRESSION: 1. Bilateral 40-59 percent proximal ICA stenoses. 2. Antegrade flow in both vertebral arteries.
--- NOTE | 2017-07-28 14:37 | PN ---
DATE: SUBJECTIVE: The patient denies any dizziness or chest pain. Denies any headache. PHYSICAL EXAMINATION: VITAL SIGNS: Blood pressure 103/69, heart rate 78, temperature 98.6, and respirations 16. HEENT: Normocephalic. NECK: No JVD. CHEST: Clear. HEART: S1 and S2 regular. EXTREMITIES: No edema. LABORATORY DATA: Hemoglobin, hematocrit, white count, and platelet count are within normal limit. SMA-7 within normal limits except creatinine 0.5. Echocardiographic study revealed normal ventricular size, wall thickness systolic as well as diastolic . Repeat EKG yesterday revealed normal sinus rhythm. ASSESSMENT: 1. Atypical chest pain, myocardial infarction ruled out. 2. Dizziness on admission. 3. History of systemic lupus erythematosus. RECOMMENDATIONS: Continue current subcutaneous Lovenox 40 mg once a day, gabapentin 300 mg daily, Protonix 40 mg twice a day, and meclizine 12.5 mg twice a day and consider performing brain MRI. Vimal Olmstead MD
[2017-07-28 15:39] LABS: CHOLESTEROL 172 mg/dL (130-200)
[2017-07-28 17:16] VITALS: BP 106/67; PULSE 80; TEMP 99.2
--- NOTE | 2017-07-28 17:37 | MRI ---
PROCEDURE: MRI BRAIN WITH AND WITHOUT CONTRAST HISTORY: dizziness COMPARISON: Head CT 07/26/2017. TECHNIQUE: Multiplanar, multisequence MR images of the brain were obtained with and without intravenous contrast enhancement. FINDINGS: HEMORRHAGE: None DWI: No evidence of an acute or early subacute infarction. BRAIN PARENCHYMA: Borderline long TR punctate hyperintensities seen in the bilateral symphysis semiovale regions suspicious for probable minimal chronic microangiopathy. No abnormal enhancement seen related to these foci. Remaining white and white matter structures above and below the tentorium appear within normal limits. There is no mass effect. There is no suspicious extra-axial fluid collection identified. Posterior fossa contents appear unremarkable with midline brain and appeared within normal limits. ENHANCEMENT: No abnormal intracranial enhancement. VENTRICLES: Unremarkable. No hydrocephalus. CRANIUM: Unremarkable. ORBITS: Grossly unremarkable. PARANASAL SINUSES/MASTOIDS: Clear VASCULAR SYSTEM: Skull base flow voids intact. OTHER FINDINGS: None . IMPRESSION: Probable limited early chronic microangiopathy the bilateral central and semiovale regions. No abnormal intracranial enhancement. Exam otherwise unremarkable.
--- NOTE | 2017-07-29 09:22 | CON ---
DATE: HISTORY OF PRESENT ILLNESS: This is a 52-year-old female with past medical history of lupus who came to the hospital with complaint of dizziness off and on over a period of a year. The symptoms come and go and denies any nausea or vomiting. No double vision. No facial asymmetry and called to evaluate the patient. PAST MEDICAL HISTORY: Lupus. REVIEW OF SYSTEMS: Ten-point review of systems was negative. PHYSICAL EXAMINATION: HEENT: Normocephalic, atraumatic. NECK: Supple. NEUROLOGIC: Alert, awake, and oriented x3. No aphasia. Cranial nerves II to XII are tested. Pupils reactive. EOM intact. Visual david full. No facial asymmetry. Tongue in the midline. Motor examination, moves all the extremities equally. Tone normal. Deep tendon reflexes 1+. Plantars are downgoing. Sensory appears intact. Cerebellar, gait normal. IMPRESSION: Dizziness. Continue present management, give meclizine and we will follow it up. Kyle Menchaca MD
--- NOTE | 2017-07-29 17:57 | CP.PCM.DIS ---
<Jaylen Ndiaye - Last Filed: 07/29/17 17:34> Provider - Provider Date of Admission: 07/26/17 20:27 Attending physician: Keiko Dahl MD Primary care physician: Anne Cedeno DO Time Spent in preparation of Discharge (in minutes): 45 Hospital Course - Lab Results Lab Results: Most Recent Lab Values WBC 7.6 10^3/ul (4.5-11.0) 07/28/17 06:00 RBC 4.61 10^6/uL (3.5-6.1) 07/28/17 06:00 Hgb 12.4 g/dL (12.0-16.0) 07/28/17 06:00 Hct 37.6 % (36.0-48.0) 07/28/17 06:00 MCV 81.6 fl (80.0-105.0) 07/28/17 06:00 MCH 26.9 pg (25.0-35.0) 07/28/17 06:00 MCHC 33.0 g/dl (31.0-37.0) 07/28/17 06:00 RDW 14.4 % (11.5-14.5) 07/28/17 06:00 Plt Count 253 10^3/uL (120.0-450.0) 07/28/17 06:00 MPV 10.2 fl (7.0-11.0) 07/28/17 06:00 Gran % 64.7 % (50.0-68.0) 07/28/17 06:00 Lymph % (Auto) 22.1 % (22.0-35.0) 07/28/17 06:00 Cross % (Auto) 8.6 % (1.0-6.0) H 07/28/17 06:00 Eos % (Auto) 4.3 % (1.5-5.0) 07/28/17 06:00 Baso % (Auto) 0.3 % (0.0-3.0) 07/28/17 06:00 Gran # 4.91 (1.4-6.5) 07/28/17 06:00 Lymph # 1.7 (1.2-3.4) 07/28/17 06:00 Cross # 0.7 (0.1-0.6) H 07/28/17 06:00 Eos # 0.3 (0.0-0.7) 07/28/17 06:00 Baso # 0.02 K/mm3 (0.0-2.0) 07/28/17 06:00 PT 11.7 SECONDS (9.4-12.5) 07/26/17 19:00 INR 1.07 (0.93-1.08) 07/26/17 19:00 APTT 28.5 Seconds (25.1-36.5) 07/26/17 19:00 D-Dimer, Quantitative < 200 ng/mL (0-243) 07/27/17 15:10 Sodium 140 mmol/L (132-148) 07/28/17 06:00 Potassium 4.2 mmol/L (3.6-5.0) 07/28/17 06:00 Chloride 106 mmol/L (98-107) 07/28/17 06:00 Carbon Dioxide 24 mmol/L (21-33) 07/28/17 06:00 Anion Gap 14 (10-20) 07/28/17 06:00 BUN 21 mg/dL (7-21) 07/28/17 06:00 Creatinine 0.5 mg/dL (0.7-1.2) L 07/28/17 06:00 Est GFR ( Amer) > 60 07/28/17 06:00 Est GFR (Non-Af Amer) > 60 07/28/17 06:00 POC Glucose (mg/dL) 95 mg/dL (65-110) 07/27/17 07:15 Random Glucose 97 mg/dL (70-110) 07/28/17 06:00 Calcium 9.3 mg/dL (8.4-10.5) 07/28/17 06:00 Phosphorus 4.3 mg/dL (2.5-4.5) 07/27/17 04:30 Magnesium 2.0 mg/dL (1.7-2.2) 07/27/17 04:30 Total Bilirubin 0.5 mg/dL (0.2-1.3) 07/28/17 06:00 AST 40 U/L (14-36) H D 07/28/17 06:00 ALT 37 U/L (7-56) 07/28/17 06:00 Alkaline Phosphatase 66 U/L (38-126) 07/28/17 06:00 Lactate Dehydrogenase 592 U/L (333-699) 07/26/17 18:40 Total Creatine Kinase 76 U/L (35-230) 07/26/17 18:40 Troponin I < 0.01 ng/mL 07/27/17 13:00 Total Protein 7.3 g/dL (5.8-8.3) 07/28/17 06:00 Albumin 3.8 g/dL (3.0-4.8) 07/28/17 06:00 Globulin 3.5 gm/dL 07/28/17 06:00 Albumin/Globulin Ratio 1.1 (1.1-1.8) 07/28/17 06:00 Triglycerides 146 mg/dL (35-160) 07/28/17 06:30 Cholesterol 172 mg/dL (130-200) 07/28/17 06:30 LDL Cholesterol Direct 79 mg/dL (0-129) 07/28/17 06:30 HDL Cholesterol 49 mg/dL (29-60) 07/28/17 06:30 Urine Color Yellow (YELLOW) 07/27/17 07:00 Urine Appearance Clear (CLEAR) 07/27/17 07:00 Urine pH 6.0 (4.7-8.0) 07/27/17 07:00 Ur Specific [place] 1.020 (1.005-1.035) 07/27/17 07:00 Urine Protein Negative mg/dL (<30 mg/dL) 07/27/17 07:00 Urine Glucose (UA) Negative mg/dL (NEGATIVE) 07/27/17 07:00 Urine Ketones Negative mg/dL (NEGATIVE) 07/27/17 07:00 Urine Blood Negative (NEGATIVE) 07/27/17 07:00 Urine Nitrate Negative (NEGATIVE) 07/27/17 07:00 Urine Bilirubin Negative (NEGATIVE) 07/27/17 07:00 Urine Urobilinogen 0.2 E.U./dL (<1 E.U./dL) 07/27/17 07:00 Ur Leukocyte Esterase Negative [place]/uL (NEGATIVE) 07/27/17 07:00 - Hospital Course Hospital Course: Ms. Daniel is a 52 year female with a past medical history of Lupus who comes in complaining of dizziness for the past week. The patient states that she's had this in the past however the last two attacks today were much more severe and that prompted her to come in. The patient also reports headache and right hear pressure and chest pain in conjunction with the symptoms. The patient was transferred to telemetry unit for monitoring and evaluation. Orthostatic vital signs were normal. CT Head showed no evidence of hemorrhage. EKG and CXR were unremarkable. Patient was transferred to telemetry unit for evaluation. Cardiology and Neurology were consulted. Troponin I was negative x3. Echo was done and showed EF >50% w/ normal valvular function and wall motion. Carotid US showed b/l 40-59 % proximal ICA stenoses. Brain MRI was done and showed microangiopathy. Lipid panel was normal. Cardio and Neuro cleared the patient. She is being discharged with ASA and to f/u Dr. Cedeno and Dr. Monique in 1 week. - Date & Time of H&P Date of H&P: 07/27/17 Time of H&P: 03:20 Discharge Exam - Additional Findings Additional findings: - Constitutional Appears: Well, Non-toxic, No Acute Distress - Head Exam Head Exam: ATRAUMATIC, NORMAL INSPECTION, NORMOCEPHALIC - Eye Exam Eye Exam: EOMI, Normal appearance, PERRL Pupil Exam: NORMAL ACCOMODATION - ENT Exam ENT Exam: Mucous Membranes Moist, Normal Exam - Neck Exam Neck Exam: Full ROM, Normal Inspection - Respiratory Exam Respiratory Exam: Clear to Ausculation Bilateral, NORMAL BREATHING PATTERN. absent: Decreased Breath Sounds, Rales, Rhonchi, Wheezes - Cardiovascular Exam Cardiovascular Exam: RRR, +S1, +S2. absent: Gallop, Rubs, Murmur - GI/Abdominal Exam GI & Abdominal Exam: Soft, Normal Bowel Sounds. absent: Distended, Tenderness - Extremities Exam Extremities Exam: Full ROM, Normal Inspection. absent: Calf Tenderness, Pedal Edema, Tenderness - Back Exam Back Exam: Full ROM, NORMAL INSPECTION. absent: CVA tenderness (L), CVA tenderness (R), tenderness - Neurological Exam Neurological Exam: Alert, Awake, Oriented x3 Neuro motor strength exam: Left Upper Extremity: 5, Right Upper Extremity: 5, Left Lower Extremity: 5, Right Lower Extremity: 5 - Psychiatric Exam Psychiatric exam: Normal Affect, Normal Mood - Skin Skin Exam: Normal Color, Warm Discharge Plan - Discharge Medications Prescriptions: Aspirin [Low Dose Aspirin EC] 81 mg PO DAILY #30 tablet.dr - Follow Up Plan Condition: FAIR Disposition: HOME/ ROUTINE Instructions: Heart Healthy Diet (DC), Vertigo (GEN) Additional Instructions: 1. Follow up with PMD DR. Cedeno in 1 week. 2. Follow up with neurology Dr. monique in 1 week. Referrals: Darryl Monique MD [Staff Provider] - Anne Cedeno DO [Primary Care Provider] - <Keiko Dahl - Last Filed: 07/30/17 10:15> Provider - Provider Date of Admission: 07/26/17 20:27 Attending physician: Keiko Dahl MD Primary care physician: Anne Cedeno DO Hospital Course - Lab Results Lab Results: Most Recent Lab Values WBC 7.6 10^3/ul (4.5-11.0) 07/28/17 06:00 RBC 4.61 10^6/uL (3.5-6.1) 07/28/17 06:00 Hgb 12.4 g/dL (12.0-16.0) 07/28/17 06:00 Hct 37.6 % (36.0-48.0) 07/28/17 06:00 MCV 81.6 fl (80.0-105.0) 07/28/17 06:00 MCH 26.9 pg (25.0-35.0) 07/28/17 06:00 MCHC 33.0 g/dl (31.0-37.0) 07/28/17 06:00 RDW 14.4 % (11.5-14.5) 07/28/17 06:00 Plt Count 253 10^3/uL (120.0-450.0) 07/28/17 06:00 MPV 10.2 fl (7.0-11.0) 07/28/17 06:00 Gran % 64.7 % (50.0-68.0) 07/28/17 06:00 Lymph % (Auto) 22.1 % (22.0-35.0) 07/28/17 06:00 Cross % (Auto) 8.6 % (1.0-6.0) H 07/28/17 06:00 Eos % (Auto) 4.3 % (1.5-5.0) 07/28/17 06:00 Baso % (Auto) 0.3 % (0.0-3.0) 07/28/17 06:00 Gran # 4.91 (1.4-6.5) 07/28/17 06:00 Lymph # 1.7 (1.2-3.4) 07/28/17 06:00 Cross # 0.7 (0.1-0.6) H 07/28/17 06:00 Eos # 0.3 (0.0-0.7) 07/28/17 06:00 Baso # 0.02 K/mm3 (0.0-2.0) 07/28/17 06:00 PT 11.7 SECONDS (9.4-12.5) 07/26/17 19:00 INR 1.07 (0.93-1.08) 07/26/17 19:00 APTT 28.5 Seconds (25.1-36.5) 07/26/17 19:00 D-Dimer, Quantitative < 200 ng/mL (0-243) 07/27/17 15:10 Sodium 140 mmol/L (132-148) 07/28/17 06:00 Potassium 4.2 mmol/L (3.6-5.0) 07/28/17 06:00 Chloride 106 mmol/L (98-107) 07/28/17 06:00 Carbon Dioxide 24 mmol/L (21-33) 07/28/17 06:00 Anion Gap 14 (10-20) 07/28/17 06:00 BUN 21 mg/dL (7-21) 07/28/17 06:00 Creatinine 0.5 mg/dL (0.7-1.2) L 07/28/17 06:00 Est GFR ( Amer) > 60 07/28/17 06:00 Est GFR (Non-Af Amer) > 60 07/28/17 06:00 POC Glucose (mg/dL) 95 mg/dL (65-110) 07/27/17 07:15 Random Glucose 97 mg/dL (70-110) 07/28/17 06:00 Calcium 9.3 mg/dL (8.4-10.5) 07/28/17 06:00 Phosphorus 4.3 mg/dL (2.5-4.5) 07/27/17 04:30 Magnesium 2.0 mg/dL (1.7-2.2) 07/27/17 04:30 Total Bilirubin 0.5 mg/dL (0.2-1.3) 07/28/17 06:00 AST 40 U/L (14-36) H D 07/28/17 06:00 ALT 37 U/L (7-56) 07/28/17 06:00 Alkaline Phosphatase 66 U/L (38-126) 07/28/17 06:00 Lactate Dehydrogenase 592 U/L (333-699) 07/26/17 18:40 Total Creatine Kinase 76 U/L (35-230) 07/26/17 18:40 Troponin I < 0.01 ng/mL 07/27/17 13:00 Total Protein 7.3 g/dL (5.8-8.3) 07/28/17 06:00 Albumin 3.8 g/dL (3.0-4.8) 07/28/17 06:00 Globulin 3.5 gm/dL 07/28/17 06:00 Albumin/Globulin Ratio 1.1 (1.1-1.8) 07/28/17 06:00 Triglycerides 146 mg/dL (35-160) 07/28/17 06:30 Cholesterol 172 mg/dL (130-200) 07/28/17 06:30 LDL Cholesterol Direct 79 mg/dL (0-129) 07/28/17 06:30 HDL Cholesterol 49 mg/dL (29-60) 07/28/17 06:30 Urine Color Yellow (YELLOW) 07/27/17 07:00 Urine Appearance Clear (CLEAR) 07/27/17 07:00 Urine pH 6.0 (4.7-8.0) 07/27/17 07:00 Ur Specific [place] 1.020 (1.005-1.035) 07/27/17 07:00 Urine Protein Negative mg/dL (<30 mg/dL) 07/27/17 07:00 Urine Glucose (UA) Negative mg/dL (NEGATIVE) 07/27/17 07:00 Urine Ketones Negative mg/dL (NEGATIVE) 07/27/17 07:00 Urine Blood Negative (NEGATIVE) 07/27/17 07:00 Urine Nitrate Negative (NEGATIVE) 07/27/17 07:00 Urine Bilirubin Negative (NEGATIVE) 07/27/17 07:00 Urine Urobilinogen 0.2 E.U./dL (<1 E.U./dL) 07/27/17 07:00 Ur Leukocyte Esterase Negative [place]/uL (NEGATIVE) 07/27/17 07:00 Attending/Attestation - Attestation I have personally seen and examined this patient.: Yes I have fully participated in the care of the patient.: Yes I have reviewed all pertinent clinical information, including history, physical exam and plan: Yes Notes (Text): 07/30/17 10:15 attending note; Patient seen and examined with resident. Patient is a 52-year-old female admitted with dizziness. No orthostatic changes. Ambulating fine. CT head is negative. MRI showed chronic microvascular disease. No acute infarct. Carotid Doppler showed moderate stenosis. Started on aspirin. cardiology evaluation appreciated. cardiac enzymes negative. Echo normal. Patient will be discharged home. Follow-up with PMD Dr. Cdeeno. Follow-up with neurology Dr. Monique. diagnosis; Dizziness Lupus
== END 2017-07-28 19:03 | disposition home or self-care (01) ==
LOC: ED 16:25 → ERH 20:27 → 2RSO 07-27 00:26 → INTOOBSV 07-27 15:45 → OBSVTOIN 07-27 15:45
PROVIDERS: ADMIT Internal Medicine; ATTEND Internal Medicine
DX: R42 Dizziness and giddiness (principal); R07.89 Other chest pain; M32.9 Systemic lupus erythematosus, unspecified; R51 Headache; Z98.51 Tubal ligation status; Z82.49 Family history of ischemic heart disease and other diseases of the circulatory system
CPT/HCPCS: 36415; 70450; 70553; 71010; 80053; 80061; 81003; 82550; 82948; 83615; 83735; 84100; 84484; 85025; 85378; 85610; 85730; 93005; 93306; 93880; 97116; 97161; 99285; A9579; G0378; G8978; G8979; G8980; J1650

== ENCOUNTER 2019-01-21 14:20 | Outpatient (CLI) | payer MEDICAID | END 2019-01-21 14:21 | disposition home or self-care (01) | LOC: RAD 14:20 | DX: Z12.31 Encounter for screening mammogram for malignant neoplasm of breast (principal); M81.0 Age-related osteoporosis without current pathological fracture ==